=== PATIENT | female | born 1945 | race Caucasian/White ===

== ENCOUNTER → 2021-09-01 16:14 | Outpatient (CLI) | payer MEDICARE, SELFPAY ==
--- NOTE | ~2021-09-01 | XR_ITS ---
XR chest 1V 09/01/2021 16:39 Indication: Shortness of breath Procedure: AP view of the chest Comparison: Comparison to multiple prior studies sequentially, with oldest reviewed study dated 08/2005. Findings: There are linear infiltrates of the right upper and left lower lung. Heart size normal. The re are patchy areas of airspace disease in the left upper and right lower lung. No significant pleura l effusion or pneumothorax. No edema. Impression: 1: Patchy bilateral mixed interstitial and airspace disease, suspicious for pneumonia. Reviewed, dictated and finalized at location A. Impression: 1: Patchy bilateral mixed interstitial and airspace disease, suspicious for pne mary.
== END ==
PROVIDERS: PCP Internal Medicine; Visit Provider Internal Medicine
DX: R06.89 Other abnormalities of breathing (principal)
CPT/HCPCS: 71045